=== PATIENT | female | born 1995 | race Two or more races ===

== ENCOUNTER → 2021-08-06 | Outpatient (CLI) | payer MEDICAID ==
[2021-08-06 10:47] LABS: Basophils # (auto) 0 10 ^3/uL (0-0.2); Basophils % (auto) 0.3 % (0.0-2.0); Eosinophils # (auto) 0.1 10 ^3/uL (0-0.8); Eosinophils % (auto) 0.6 % (0.0-7.0); Lymphocytes # (auto) 1.8 10 ^3/uL (0.4-5.4); Lymphocytes % (auto) 17.2 % (10.0-50.0); Mean Corpuscular Hemoglobin 32.4 pg (28.0-32.0); Mean Corpuscular Hgb Conc. 34.2 g/dL (32.0-36.0); Mean Corpuscular Volume 94.7 fL (80.0-100.0); Monocytes # (auto) 0.6 10 ^3/uL (0-1.3); Monocytes % (auto) 6.1 % (0.0-12.0); Neutrophils % (auto) 75.8 % (37.0-80.0); Nucleated Red Blood Cells % 0.1 %; Red Blood Cells 3.69 10^6/uL (4.0-5.20); Red Cell Distribution Width 13.8 % (11.8-14.3); White Blood Cell 10.5 10^3/uL (4.4-10.8)
[2021-08-07 08:06] LABS: RPR Non Reactive (Non Reactive)
== END | disposition home or self-care (01) ==
LOC: LAB 10:06
PROVIDERS: ATTEND Obstetrics & Gynecology
DX: Z34.80 Encounter for supervision of other normal pregnancy, unspecified trimester (principal); Z3A.00 Weeks of gestation of pregnancy not specified
CPT/HCPCS: 36415; 84112; 85025; 86592

== ENCOUNTER 2021-08-20 13:25 | Observation (INO) | payer MEDICAID ==
[2021-08-20] MEDS ORDERED: PREN-96 PO (17:09)
== END 2021-08-20 17:17 | disposition home or self-care (01) ==
LOC: UNDOADMOB 13:25 → LDRP 13:25
PROVIDERS: ADMIT Obstetrics & Gynecology; ATTEND Obstetrics & Gynecology
DX: O62.9 Abnormality of forces of labor, unspecified (principal); Z3A.37 37 weeks gestation of pregnancy
CPT/HCPCS: 59025; 76818; 81002; 84112; 94760; G0378; Q0114

== ENCOUNTER 2021-08-22 11:00 | Inpatient (IN) | payer MEDICAID ==
[~2021-08-22] VITALS: Ht 170.2 cm; Wt 120.2 kg
[~2021-08-22 11:00] MED LIST: PREN-96 PO
[2021-08-22] MEDS ORDERED: PROMETHAZINE HCL 25 MG/ML 1ML IV PRN (16:15)
[2021-08-22] MEDS ORDERED: PHISODERM TOP SOLN 240ML BTL TOP PRN (16:15)
[2021-08-22] MEDS ORDERED: DERMOPLAST 60ML BOTTLE TOP PRN (16:15)
[2021-08-22] MEDS ORDERED: LACTATED RINGER'S 1,000 ML IV SCH (16:15)
[2021-08-22] MEDS ORDERED: BUTORPHANOL TARTRATE 2 MG/1 ML VIAL IV PRN ×2 (16:15)
[2021-08-22] MEDS ORDERED: WITCH HAZEL-GLYCERIN PAD TOP PRN (16:15)
[2021-08-22] MEDS ORDERED: LIDOCAINE 2%HCL (LOCAL ANESTH.) INJ 10ml MDV IJ PRN (16:15)
[2021-08-22 16:58] LABS: Albumin 2.8 g/dL (3.4-5.0); BUN/Creatinine Ratio 13.1; Calcium 9.3 mg/dL (8.5-10.1); Potassium 3.7 mmol/L (3.5-5.1)
[2021-08-22 16:59] LABS: Basophils # (auto) 0 10 ^3/uL (0-0.2); Basophils % (auto) 0.3 % (0.0-2.0); Eosinophils # (auto) 0 10 ^3/uL (0-0.8); Hematocrit 39.7 % (36.0-46.0); Lymphocytes # (auto) 1.4 10 ^3/uL (0.4-5.4); Mean Corpuscular Hemoglobin 31.6 pg (28.0-32.0); Mean Corpuscular Hgb Conc. 32.8 g/dL (32.0-36.0); Mean Corpuscular Volume 96.4 fL (80.0-100.0); Monocytes # (auto) 0.4 10 ^3/uL (0-1.3); Monocytes % (auto) 2.6 % (0.0-12.0); Neutrophils # (auto) 12.2 10 ^3/uL (1.6-8.6); Neutrophils % (auto) 87.1 % (37.0-80.0); Nucleated Red Blood Cells % 0.1 %; Red Blood Cells 4.12 10^6/uL (4.0-5.20); Red Cell Distribution Width 13.9 % (11.8-14.3)
[2021-08-22] MEDS ORDERED: TERBUTALINE SULFATE 1 MG/ML 1ML VIAL SC PRN (17:00)
[2021-08-22] MEDS ORDERED: OXYTOCIN 10UNIT/ML 1ML VIAL IM ONE (17:00)
[2021-08-22 17:01] LABS: Bilirubin, Total 0.6 mg/dL (0.2-1.0); Total Protein 7.4 g/dL (6.4-8.2)
[2021-08-22] MEDS ORDERED: OXYTOCIN 10UNIT/ML 1ML VIAL ONE (17:01)
[2021-08-22 17:05] LABS: INR 0.94 (0.9-1.15); Partial Thromboplastin Time 27.1 sec (23.6-33.0)
[2021-08-22] MEDS ORDERED: LACT. RINGERS/OXYTOCIN 20UNITS 1,000 ML IV ONE (17:12)
[2021-08-22] MEDS ORDERED: LIDOCAINE 2%HCL (LOCAL ANESTH.) INJ 10ml MDV ONE (17:14)
[2021-08-22] MEDS ORDERED: METHYLERGONOVINE MALEATE 0.2 MG/ML AMP IM ONE ×3 (17:21→17:30)
[2021-08-22] MEDS ORDERED: ONDANSETRON ODT 4 MG TAB PO PRN (17:30)
[2021-08-22] MEDS ORDERED: LACT. RINGERS/OXYTOCIN 20UNITS 500 ML IV ONE ×2 (17:30→18:00)
[2021-08-22] MEDS ORDERED: METHYLERGONOVINE MALEATE 0.2 MG/ML AMP IM PRN (17:30)
[2021-08-22] MEDS ORDERED: ACETAMINOPHEN 325 MG TAB PO PRN (17:30)
[2021-08-22] MEDS ORDERED: IBUPROFEN 800 MG TAB PO SCH (18:00)
[2021-08-22 19:00] VITALS: BP 116/69
[2021-08-22 19:07] LABS: Amphetamine Screen, Urine NEGATIVE (NEGATIVE); Barbiturate Scree,Urine NEGATIVE (NEGATIVE); Benzodiazephine Screen, Urine NEGATIVE (NEGATIVE); Cannabinoid Screen, Urine NEGATIVE (NEGATIVE); Cocaine Screen, Urine NEGATIVE (NEGATIVE); Opiate Scree,Urine NEGATIVE (NEGATIVE); Phencyclidine Screen, Urine NEGATIVE (NEGATIVE)
[2021-08-22 19:12] LABS: Urine Amorphous Crystal FEW /hpf (None Seen); Urine Bacteria FEW /hpf (None Seen); Urine Blood 1+ /uL (Negative); Urine Mucus FEW (None Seen); Urine Specific Gravity 1.029 (1.001-1.035); Urine WBC 155 /hpf (0 - 5); Urine WBC Clumps PRESENT /hpf (None Seen)
[2021-08-22] MEDS: IBUPROFEN 800 MG TAB PO PRN (19:54)
[2021-08-22] MEDS ORDERED: DOCUSATE SOD 100 MG CAP PO SCH (22:00)
[2021-08-22 23:00] VITALS: BP 106/93
[2021-08-23 02:48] VITALS: BP 105/53
[2021-08-23] MEDS: IBUPROFEN 800 MG TAB PO PRN ×2 (05:51→12:49)
[2021-08-23 07:00] VITALS: BP 110/59
[2021-08-23 07:07] LABS: RPR Non Reactive (Non Reactive)
[2021-08-23 11:00] VITALS: BP 112/62
[2021-08-23 15:00] VITALS: BP 109/68
[2021-08-23 19:00] VITALS: BP 112/64
== END 2021-08-23 20:18 | disposition home or self-care (01) | DRG 560 ==
LOC: LDRP 11:00 → UNDOADMOB 11:00 → LDRP 11:52 → OBSVTOIN 16:07 → LDRP 19:56
PROVIDERS: ADMIT Obstetrics & Gynecology; ATTEND Obstetrics & Gynecology
PROC: 10E0XZZ Delivery of Products of Conception, External Approach (ICD-10-PCS; principal; 2021-08-22)
PROC: 0HQ9XZZ Repair Perineum Skin, External Approach (ICD-10-PCS; 2021-08-22)
DX: O70.0 First degree perineal laceration during delivery (principal); Z37.0 Single live birth; Z20.822 Contact with and (suspected) exposure to COVID-19; Z3A.37 37 weeks gestation of pregnancy
CPT/HCPCS: 36415; 59025; 59409; 76818; 80053; 80307; 81001; 81002; 85025; 85610; 85730; 86592; 86850; 86900; 86901; 94760; 96360; 96361; 96365; 96366; G0378; J2001; J2590